=== PATIENT | female | born 1950 | race Caucasian/White ===

== ENCOUNTER 2021-05-25 09:50 | Emergency (ER) | payer OTHER ==
[~2021-05-25] VITALS: Ht 167.6 cm; Wt 56.7 kg
[2021-05-25] MEDS ORDERED: OMEPRAZOLE40 MG PO (10:07)
[2021-05-25] MEDS ORDERED: CARVEDILOL12.5 MG PO (10:07)
[2021-05-25] MEDS ORDERED: PRAVASTATIN SOD20 MG PO (10:07)
[2021-05-25] MEDS ORDERED: HYDROCODON-ACE1 EAC7 PO ×2 (10:08→12:29)
[2021-05-25] MEDS ORDERED: COZAAR 25 MG TA25 M2 PO (10:08)
[2021-05-25] MEDS ORDERED: METHOCARBAMOL500 M2 PO (10:08)
[2021-05-25] MEDS ORDERED: ZOLOFT 50 MG TA50 MG PO (10:11)
[2021-05-25] MEDS ORDERED: TRAMADOL 50 MG50 MG PO (10:11)
[2021-05-25] MEDS ORDERED: OXYCODONE HCL E10 MG PO (10:11)
[2021-05-25] MEDS ORDERED: FLEXERIL PO (10:11)
[2021-05-25] MEDS ORDERED: NAPROXEN500 MG PO (10:11)
[2021-05-25] MEDS ORDERED: ASA81BEC PO (10:12)
[2021-05-25] MEDS ORDERED: AUBAGIO7 MG PO (10:12)
[2021-05-25 10:30] LABS: ABSOLUTE BASOPHILS 0.1 thou/uL (0.0-0.2); ABSOLUTE EOSINOPHILS 0.1 thou/uL (0.0-0.7); ABSOLUTE LYMPHOCYTES 1.3 thou/uL (0.8-5.3); ABSOLUTE MONOCYTES 0.7 thou/uL (0.0-1.2); ABSOLUTE NEUTROPHILS 5.4 thou/uL (1.6-8.1); BASOPHILS 1.5 %; EOSINOPHILS 0.9 %; HEMATOCRIT 35.6 % (37.0-47.0); HEMOGLOBIN 11.6 gm/dL (12.0-15.0); LYMPHOCYTES 17.3 %; MCH 29.5 pg (26.0-34.0); MCHC 32.5 g/dL (28.0-37.0); MCV 90.7 fL (80.0-100.0); MONOCYTES 9.1 %; MPV 8.7 fl. (7.2-11.1); NUCLEATED RBCS 0 /100WBC; PLATELET COUNT* 295 thou/uL (150-400); POLYS 71.2 %; RBC 3.93 mil/uL (4.20-5.00); WBC 7.7 thou/uL (4.0-11.0)
[2021-05-25 10:40] LABS: CALCIUM 8.9 mg/dL (8.5-10.1); CREATININE 1.1 mg/dL (0.6-1.3); POTASSIUM 3.4 mmol/L (3.5-5.1)
[2021-05-25 10:52] LABS: ALBUMIN 3.4 g/dL (3.4-5.0); TOTAL BILIRUBIN 0.4 mg/dL (<0.1-1.0); TOTAL PROTEIN 6.8 g/dL (6.4-8.2)
[2021-05-25 10:59] LABS: URINE BILIRUBIN NEGATIVE (Negative); URINE BLOOD NEGATIVE (Negative); URINE CLARITY CLEAR; URINE COLOR YELLOW; URINE GLUCOSE-RANDOM NEGATIVE (Negative); URINE KETONES TRACE (Negative); URINE LEUKOCYTES-REFLEX NEGATIVE (Negative); URINE NITRITE-REFLEX NEGATIVE (Negative); URINE PROTEIN NEGATIVE (Negative); URINE SPECIFIC GRAVITY 1.025 (1.005-1.030)
[2021-05-25 11:07] LABS: AMP/METHAMP Negative (Negative); BARBITURATES Negative (Negative); BENZODIAZEPINES Negative (Negative); COCAINE Negative (Negative); METHADONE Negative (Negative); OPIATES Negative (Negative); PCP Negative (Negative); THC POSITIVE (Negative)
[2021-05-25 12:45] VITALS: BP 159/72
== END 2021-05-25 12:46 | disposition home or self-care (01) ==
LOC: M.ERS 09:50
PROVIDERS: Nurse Practitioner Psychiatric/Mental Health
DX: S32.512D Fracture of superior rim of left pubis, subsequent encounter for fracture with routine healing (principal); S32.592D Other specified fracture of left pubis, subsequent encounter for fracture with routine healing; R06.02 Shortness of breath; R63.0 Anorexia; I50.9 Heart failure, unspecified; R03.0 Elevated blood-pressure reading, without diagnosis of hypertension; Z90.711 Acquired absence of uterus with remaining cervical stump; Z79.899 Other long term (current) drug therapy; Z79.82 Long term (current) use of aspirin; Z88.8 Allergy status to other drugs, medicaments and biological substances; Z88.1 Allergy status to other antibiotic agents; Z88.5 Allergy status to narcotic agent; W19.XXXD Unspecified fall, subsequent encounter